=== PATIENT | male | born 1990 | race Caucasian/White ===

== ENCOUNTER → 2018-12-16 13:53 | Outpatient (CLI) | payer BC, SELFPAY ==
[2018-12-16 17:10] LABS: HIV - WCH Non-Reactive (Nonreactive)
[2018-12-16 19:26] LABS: Chlamydia Trachomatis by PCR Negative (Negative); Neisserai gonorrhoeae by PCR Negative (Negative); Probe Check PASS; Sample Adequacy Control PASS; Specimen Processing Control PASS
[2018-12-19 11:31] LABS: HEPATITIS B SURFACE AG Negative (Negative); Hep B Surface Antibodies Reactive (.); Hep C Antibodies <0.1 s/co ratio (0.0-0.9)
[2018-12-22 23:33] LABS: Rapid Plasmin Reagin (RPR) NONREACTIVE (NONREACTIVE)
== END ==
PROVIDERS: Family Provider Family Medicine; PCP Family Medicine; Visit Provider Family Medicine
DX: Z11.3 Encounter for screening for infections with a predominantly sexual mode of transmission (principal)
CPT/HCPCS: 36415; 86592; 86703; 86706; 86803; 87340; 87491; 87591